=== PATIENT | female | born 1950 | race Caucasian/White ===

== ENCOUNTER → 2017-08-01 | Outpatient (CLI) | payer MEDICARE, BC ==
[~2017-08-01] MED LIST: ALPRAZOLAM; BACTRIM; CEFDINIR PO; ESTER-C500 M1 PO; GRAPE SEED25 MG PO; ILOTYCIN1 GM; KEFLEX500 MG PO; MACROBID 100 M100 M1 PO; MEDROLDOSEPACK; MEDROLDOSEPACK PO; NAPROSYN500 MG PO; NASONEX17 GM INH; RESTORIL30 MG PO; ROLAIDS CHEWAB1 EACH PO; THYROID MEDS; TIROSINT100 MCG PO; VITAMIN D1000 UNI1 PO
[2017-08-01 14:47] LABS: ALBUMIN 3.9 g/dL (3.4-5.0); CALCIUM 9.7 mg/dL (8.5-10.1); CREATININE 0.8 mg/dL (0.6-1.3); MAGNESIUM 2.2 mg/dL (1.8-2.4); POTASSIUM 3.9 mmol/L (3.5-5.1); TOTAL BILIRUBIN 0.6 mg/dL (<0.1-1.0); TOTAL PROTEIN 7.4 g/dL (6.4-8.2)
== END ==
LOC: M.LAB 14:08
PROVIDERS: Nurse Practitioner
DX: R00.2 Palpitations (principal)

== ENCOUNTER → 2018-09-13 | Outpatient (CLI) | payer MEDICARE, OTHER | LOC: M.RAD 10:45 | DX: M79.644 Pain in right finger(s) (principal); R05 Cough ==

== ENCOUNTER 2018-12-01 14:36 | Emergency (ER) | payer MEDICARE, OTHER ==
[~2018-12-01] VITALS: Ht 157.5 cm; Wt 96.6 kg
[2018-12-01] MEDS ORDERED: SYNTHROID175 MCG PO (14:49)
[2018-12-01] MEDS ORDERED: TOPROL XL25 MG PO (14:49)
[2018-12-01] MEDS ORDERED: CRESTOR10 MG PO (14:50)
[2018-12-01] MEDS ORDERED: TRAMADOL 50 MG50 MG PO (15:46)
[2018-12-01] MEDS ORDERED: KEFLEX500 M1 PO (15:46)
[2018-12-01 15:56] VITALS: BP 132/80
== END 2018-12-01 15:58 | disposition home or self-care (01) ==
LOC: M.ERS 14:36
DX: L03.011 Cellulitis of right finger (principal); I48.91 Unspecified atrial fibrillation; F17.210 Nicotine dependence, cigarettes, uncomplicated